=== PATIENT | female | born 1990 | race Two or more races ===

== ENCOUNTER 2024-07-27 15:23 | Emergency (ER) | payer OTHER ==
[~2024-07-27] VITALS: Ht 157.5 cm; Wt 90.7 kg
[2024-07-27] MEDS ORDERED: CLINDAMYCIN PHOSPHATE 150 MG/ML (600mg) IM STA (16:56)
[2024-07-27] MEDS ORDERED: CLINDAMYCIN PHOSPHATE 150 MG/ML (300mg) ONE (16:57)
== END 2024-07-27 17:04 | disposition home or self-care (01) ==
LOC: ER 15:25
DX: L03.011 Cellulitis of right finger (principal); Z88.0 Allergy status to penicillin